=== PATIENT | male | born 1965 | race Caucasian/White ===

== ENCOUNTER → 2016-07-01 | Outpatient (CLI) | payer BC ==
--- NOTE | 2016-07-01 18:09 | PN ---
DATE OF SERVICE: 07/01/2016 This patient is a 51-year-old gentleman who has been followed in the sleep center for treatment of obstructive sleep apnea/hypopnea syndrome. Patient continues treatment with CPAP every night for the whole night but has difficulties related to the pressure because he significantly lost weight since his previous visit, from 280 pounds to 235 pounds, and from previous titration from 286 pounds. Subsequently he lost around 50 pounds. He always sleeps with the machine, so we do not know exactly whether or not now he snores, after he lost weight. I checked his CPAP unit. It demonstrated that the patient is using it every night for the whole night; 30 out of 30 nights, for more than 4 hours. CPAP pressure is 12 cm of water. Machine does not give us a reading of AHI. [place] Sleepiness Scale is 5. MEDICATIONS: 1. Primidone. 2. Synthroid. 3. B12 supplement. 4. Other vitamins. PHYSICAL EXAMINATION: GENERAL: Pleasant gentleman in no distress. VITAL SIGNS: BP 142/83, HR 58, RR 16. Height 5 feet 11 inches. Weight 235. BMI 32.7. Neck 16 inches in circumference. Temperature 97.8. Oxygen saturation at room air 100%. HEENT: PERRLA, EOMI. Evaluation of oropharynx showed tongue protrudes midline; low position of soft palate. NECK: Supple. No JVD. Thyroid is not palpable. LUNGS: Clear to percussion and to auscultation. Good air exchange. No wheezing or rhonchi. HEART: S1, S2 regular. No murmurs, gallops or rubs. ABDOMEN: Slightly obese. EXTREMITIES: No clubbing or cyanosis. NURSE CASE MANAGEMENT: Awake, alert, and oriented x3. Cranial nerves 2 to 7 intact. There is no fasciculation or atrophy noted. No focal deficits observed. IMPRESSION: 1. Obstructive sleep apnea-hypopnea syndrome. Patient has difficulties with usage of his CPAP unit. Now he has lost about 50 pounds. 2. Hypertension. 3. Mild obesity; body mass index of 32.7. 4. Hypothyroidism. 5. Hyperlipidemia. 6. History of essential tremor. PLAN: 1. We will repeat CPAP titration for re-evaluation of effective CPAP pressure at the present time. 2. Continue losing weight. 3. Sleep hygiene with regular time in bed for at least 8 hours. 4. Precautions related to driving; no driving if feeling any sleepiness. Patient is aware of civil and criminal liability for unsafe driving. 5. Prescription for all necessary CPAP supplies. Thank you very much for allowing me to participate in the management of your patient. Sincerely, Avinash Fuller MD, PhD, FAASM. Diplomat of [place] Board of Sleep Medicine, Sleep Medicine Board by [place] Board of Medical Specialities, [place] Board of Internal Medicine
== END | disposition home or self-care (01) ==
LOC: SLEEP 14:49
PROVIDERS: ATTEND Internal Medicine
DX: G47.33 Obstructive sleep apnea (adult) (pediatric) (principal); I10 Essential (primary) hypertension; E66.9 Obesity, unspecified; Z68.32 Body mass index [BMI] 32.0-32.9, adult; E03.9 Hypothyroidism, unspecified; E78.5 Hyperlipidemia, unspecified; G25.0 Essential tremor; Z79.899 Other long term (current) drug therapy

== ENCOUNTER → 2016-12-29 | Outpatient (CLI) | payer BC ==
--- NOTE | 2016-12-29 18:17 | PN ---
PROGRESS NOTE DATE OF SERVICE: 12/29/2016 51-year-old gentleman who has been followed in the Sleep Center for treatment of obstructive sleep apnea-hypopnea syndrome. Recently patient received his new CPAP unit, using it every night for the whole night and sometimes feel discomfort in his right ear area, possibly related to the ear. I checked his CPAP unit. CPAP pressure is 8 cm of water. Usage is 100% more than 4 hours. Average usage is 7 hours 18 minutes. Apnea-hypopnea index is only 0.2 with the machine. I discussed results of the titration with the patient and reviewed the results of the titration. Again at the pressure of 7 Apnea-hypopnea index was 0.8 in the pressure 8, it was 1.6 but with a pressure of 6 Apnea-hypopnea index increased to 12.6. MEDICATIONS: 1. Synthroid. 2. Primidone. PHYSICAL EXAMINATION: During physical exam patient in no distress. BP 126/77, HR 48, RR 16, weight 240.2, temp 98.0, oxygen saturation on room air 100%. [place] Sleepiness Scale is 1. Oropharynx low position of soft palate. Neck Supple, no JVD. Thyroid is not palpable. LUNGS Clear to percussion and to auscultation. Good air exchange. No wheezing or rhonchi. HEART S1, S2 regular. No murmurs, gallops, or rubs. ABDOMEN Soft and nontender. Bowel sounds are present. No organomegaly appreciated. EXTREMITIES No clubbing or cyanosis. SUPERVISOR PUTTY AND CALUKING Awake, alert, and oriented X3. Cranial nerves 2 to 7 intact. There is no fasciculation or atrophy. noted. No focal deficits observed. IMPRESSION: 1. Obstructive sleep apnea-hypopnea syndrome on full control with CPAP at 8 cm of water. Patient demonstrated 100% compliance with treatment benefitting from treatment. 2. History of hypertension in the past, presently not on any medications for hypertension. Blood pressure normal today in the office. 3. Hypothyroidism. 4. Hyperlipidemia. 5. History of essential tremor. PLAN: 1. I will decrease pressure down to 7 cm of water. 2. Patient will continue to use equipment every night for the whole night. 3. Continue losing weight. 4. Sleep hygiene in bed for at least 8 hours. 5. 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 No driving if feeling sleepiness. No sleepiness at the present time. He is aware about civil and criminal liability driving. Thank you very much for allowing me to participate in the management of your patient. Sincerely, Avinash Fuller MD, PhD, FAASM Diplomat of [place] Board of Medical Specialties [place] Board of Internal Medicine Service Engine Repairer of [facility] [place] MMODL / GARRYN: [id number] /
== END ==
LOC: SLEEP 16:20
PROVIDERS: ATTEND Internal Medicine
DX: G47.33 Obstructive sleep apnea (adult) (pediatric) (principal); E03.9 Hypothyroidism, unspecified; E78.5 Hyperlipidemia, unspecified; I10 Essential (primary) hypertension; Z79.899 Other long term (current) drug therapy

== ENCOUNTER → 2017-02-17 | Outpatient (CLI) | payer BC ==
--- NOTE | 2017-02-17 17:38 | PN ---
PROGRESS NOTE DATE OF SERVICE: 02/17/2017 51-year-old gentleman who has been followed in Sleep Center for treatment of obstructive sleep apnea-hypopnea syndrome. During the last visit about 2 months ago, I changed pressure down from 8 cm of water to 7 cm of water because patient had some feeling of pressure in his ears and in his eyes. The concern was that maybe after decreasing pressure, it will be not enough for correction of his respiratory abnormalities. The patient continued to use his CPAP every night. No problem with breathing. No problem with the mask. No snoring with the machine. [place] Sleepiness Scale today is 1. I checked his CPAP unit. Usage is 100% of the time more than 4 hours. Average usage is 7.5 hours. Pressure is 7 cm of water. Leak is only 4 L/minute. Apnea-hypopnea index for the last month only 0.3, which is totally normal. MEDICATIONS: Synthroid, Primidone. PHYSICAL EXAM: GENERAL Patient in no distress. VITAL SIGNS BP 138/84, HR 61, R RR 16, weight 241, temp 97.7, oxygen saturation room air 99%. HEENT PERRLA, EOMI, evaluation of oropharynx showed low position of soft palate. NECK Supple, no JVD. Thyroid is not palpable. LUNGS Clear to percussion and to auscultation. Good air exchange. No wheezing or rhonchi. HEART S1, S2 regular. No murmurs, gallops, or rubs. ABDOMEN Soft and nontender. Bowel sounds are present. No organomegaly appreciated. EXTREMITIES No clubbing or cyanosis. PLATE STACKER HAND Awake, alert, and oriented X3. Cranial nerves 2 to 7 intact. There is no fasciculation or atrophy. noted. No focal deficits observed. IMPRESSION: 1. Obstructive sleep apnea-hypopnea syndrome on control with CPAP at 7 cm of water. Patient demonstrated 100% compliance with treatment benefitting from treatment. No side effects of CPAP therapy. 2. History of hypertension in the past. Very minimally increased today in the office. 3. Hypothyroidism. 4. History of essential tremor. 5. Hyperlipidemia. PLAN: 1. Continue treatment with CPAP every night for the whole night with pressure 7 cm of water. 2. Sleep hygiene with regular time in bed for at least 8 hours. 3. No driving if feeling any sleepiness. Precautions related to driving. 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 He is aware about civil and criminal liability for unsafe driving and promises to follow recommendations. 4. Prescription for all necessary CPAP supplies. 5. Followup visit in 6 months. Thank you very much for allowing me to participate in management of your patient. Sincerely, Avinash Fuller MD, PhD, FAASM Diplomat of [place] Board of Medical Specialties [place] Board of Internal Medicine Health And Social Care Teacher of [facility] [place] MMODL / IJN: [id number] /
== END | disposition home or self-care (01) ==
LOC: SLEEP 15:05
PROVIDERS: ATTEND Internal Medicine
DX: G47.33 Obstructive sleep apnea (adult) (pediatric) (principal); E03.9 Hypothyroidism, unspecified; E78.5 Hyperlipidemia, unspecified; I10 Essential (primary) hypertension; Z86.69 Personal history of other diseases of the nervous system and sense organs; Z79.899 Other long term (current) drug therapy

== ENCOUNTER → 2017-09-29 | Outpatient (CLI) | payer BC ==
--- NOTE | 2017-09-29 11:42 | SFUN ---
SLEEP CENTER FOLLOW UP NOTE DATE OF SERVICE: 09/29/2017 A 52-year-old gentleman who has been followed in Sleep Center for treatment of obstructive sleep apnea-hypopnea syndrome. 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 Patient successfully continued to use his CPAP equipment every night without any problems. No snoring with CPAP. No sleepiness during the day. [place] Sleepiness Scale is 0. Patient is about the same weight as 6 months ago. I checked his CPAP unit. CPAP pressure is 7 cm of water. Usage is 100% of the time more than 4 hours, average 7.1 hours per night. Leak is only 2 L/minute which is very minimal. Apnea-hypopnea index is 0.3 for the last 6 months, which is again perfect. MEDICATIONS: Synthroid. PHYSICAL EXAM: Patient in no distress. BP 136/85, HR 74, RR 18, height 5, 11, weight 242.0, BMI 33.7, oxygen saturation at room air 94%/ OROPHARYNX: Evaluation of oropharynx with low position of soft palate. ABDOMEN: Slightly obese. Neck Supple, no JVD. Thyroid is not palpable. LUNGS Clear to percussion and to auscultation. Good air exchange. No wheezing or rhonchi. HEART S1, S2 regular. No murmurs, gallops, or rubs. EXTREMITIES No clubbing or cyanosis. OXYGEN EQUIPMENT TECHNICIAN Awake, alert, and oriented X3. Cranial nerves 2 to 7 intact. There is no fasciculation or atrophy. noted. No focal deficits observed. IMPRESSION: 1. Obstructive sleep apnea-hypopnea syndrome, on full control with CPAP at the pressure of 7 cm of water. 2. Patient demonstrated 100% compliance with treatment with a normal amount of hours of usage per night, benefitting from treatment. No symptoms of excessive daytime sleepiness. 3. Obesity, body mass index of 33.7. 4. History of hypertension in the past. Patient not on any medications for over a year. Borderline blood pressure in the office. 5. Hypothyroidism. 6. Hyperlipidemia. 7. History of essential tremor. No significant tremor today during physical exam. PLAN: 1. Patient will continue to use CPAP equipment every night for the whole night. 2. Sleep hygiene with regular time in bed for at least 7-1/2 hours. 3. 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 He is aware about precautions related to driving. No driving if feeling any sleepiness. He is aware about civil and criminal liability for unsafe driving. Promised to follow all recommendations. 4. Losing weight. Thank you very much for allowing me to participate in the management of your patient. Sincerely, Avinash Fuller MD, PhD, FAASM Diplomat of [place] Board of Medical Specialties [place] Board of Internal Medicine Spool Tender of [facility] [place] MMODL / BUTCH: [id number] /
== END | disposition home or self-care (01) ==
LOC: SLEEP 10:12
PROVIDERS: ATTEND Internal Medicine
DX: G47.33 Obstructive sleep apnea (adult) (pediatric) (principal); I10 Essential (primary) hypertension; E03.9 Hypothyroidism, unspecified; E78.5 Hyperlipidemia, unspecified; E66.9 Obesity, unspecified; Z68.33 Body mass index [BMI] 33.0-33.9, adult; Z86.69 Personal history of other diseases of the nervous system and sense organs; Z99.89 Dependence on other enabling machines and devices; Z79.899 Other long term (current) drug therapy

== ENCOUNTER → 2018-09-28 | Outpatient (CLI) | payer BC ==
--- NOTE | 2018-09-28 18:19 | PN ---
PROGRESS NOTE DATE OF SERVICE: 09/28/2018 This patient is a 53-year-old gentleman who has been followed in Sleep Center for treatment of obstructive sleep apnea-hypopnea syndrome. Patient successfully continues to use equipment every night without problems related to mask fitting, pressure or humidification. The patient denied any daytime sleepiness. [place] Sleepiness Scale is 1. I checked his CPAP unit. CPAP pressure is 7 cm of water. Usage for the last month is 100% of nights for more than 4 hours, with average usage 7.2 hours per night. Leak is 0 L/minute. Apnea-hypopnea index only 0.3, which is absolutely perfect. Reading for the year showed usage of the machine 353/365 nights for more than 4 hours with average usage 7.3 hours and leak 1 L/minute. Apnea-hypopnea index still 0.3, which is perfect. MEDICATIONS: Synthroid. PHYSICAL EXAMINATION: GENERAL: A pleasant patient in no distress. VITAL SIGNS: BP 158/107, HR 70, RR 16, height 5 feet 11 inches, weight 249 pounds, body mass index 34.7, temperature 98.5, oxygen saturation at room air 100%. HEENT: PERRLA, EOMI. Evaluation of oropharynx showed tongue protrudes midline. Low position of soft palate. NECK: Supple. No JVD. Thyroid is not palpable. LUNGS: Clear to percussion and to auscultation. Good air exchange. No wheezing or rhonchi. HEART: S1, S2 regular. No murmurs, gallops or rubs. ABDOMEN: Soft and nontender. Bowel sounds are present. No organomegaly. EXTREMITIES: No clubbing or cyanosis. HOTEL RECEPTIONIST: Awake, alert, and oriented X3. Cranial nerves 2 to 7 intact. There is no fasciculation or atrophy. noted. No focal deficits observed. IMPRESSION: 1. Obstructive sleep apnea-hypopnea syndrome. Patient demonstrated practically 100% compliance with treatment, benefitting from treatment. Normal respiration on CPAP. No symptoms of excessive daytime sleepiness. 2. Mild obesity; body mass index 34.7. The patient's weight increased by 7 pounds compared to his previous visit. 3. History of hypertension in the past, treated with medications in the past. Today's blood pressure is increased. 4. Hypothyroidism. 5. Hyperlipidemia. 6. History of essential tremor. No significant tremor at present. PLAN: 1. Patient will continue to use CPAP equipment every night for the whole night. 2. Prescription for all necessary CPAP supplies. 3. Monitoring of blood pressure, low-sodium diet and followup with primary care physician for monitoring of blood pressure. 4. Losing weight. 5. 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 Precautions related to driving. No driving if feeling any sleepiness. Patient is aware of civil and criminal liability for unsafe driving. Thank you very much for allowing me to participate in the management of your patient. Sincerely, Avinash Fuller MD, PhD, FAASM Diplomat of [place] Board of Medical Specialties [place] Board of Internal Medicine Filters Assembler of [facility] [place] MMODL / IJN: [id number] /
== END ==
LOC: SLEEP 15:02
PROVIDERS: ATTEND Internal Medicine
DX: G47.33 Obstructive sleep apnea (adult) (pediatric) (principal); E66.9 Obesity, unspecified; I10 Essential (primary) hypertension; E03.9 Hypothyroidism, unspecified; E78.5 Hyperlipidemia, unspecified; Z86.69 Personal history of other diseases of the nervous system and sense organs; Z68.34 Body mass index [BMI] 34.0-34.9, adult; Z99.89 Dependence on other enabling machines and devices; Z79.899 Other long term (current) drug therapy

== ENCOUNTER 2022-11-19 08:17 | Day surgery (SDC) | payer BC ==
[2022-11-17 16:31] VITALS: BMI 35.9
[2022-11-19] MEDS ORDERED: LIDOCAINE 1% (10MG/ML) FOR IV START INTRADERMA PRN (08:38)
[2022-11-19] MEDS ORDERED: ONDANSETRON 4 MG/2 ML VIAL IVP PRN (08:38)
[2022-11-19] MEDS: LACTATED RINGERS 1,000 ML IV SCH ×2 (08:40→09:04)
[2022-11-19 08:52] VITALS: TEMP 97.3
[2022-11-19] MEDS ORDERED: PROPOFOL 10 MG/ML 20 ML VIAL IV ONE (09:05)
--- NOTE | 2022-11-19 09:23 | P.PCN ---
Date of Procedure: 11/19/22 Procedure(s) Performed: BRIEF HISTORY: Patient is a 57-year-old pleasant white male scheduled for an elective colonoscopy as a part of screening for colon cancer. PROCEDURE PERFORMED: Colonoscopy with biopsy. PREOPERATIVE DIAGNOSIS: Screening for colon cancer. IV sedation per Anesthesia. PROCEDURE: After informed consent was obtained, the patient, was brought into the endoscopy unit. IV sedation was administered by Anesthesia under continuous monitoring. Digital rectal examination was normal. Initially the Olympus CF-160 flexible video colonoscope was then inserted in the rectum, gradually advanced into the cecum without any difficulty. Careful examination was performed as the scope was gradually being withdrawn. Ileocecal valve and the appendiceal orifice were visualized and appeared normal. Prep was excellent. Mucosa of the cecum, ascending colon, transverse colon, appeared normal. In the descending colon there was a 4 mm polyp removed by cold biopsy. In the sigmoid there was a 5 mm polyp removed by cold biopsy. Rest of the sigmoid sigmoid descending colon, sigmoid colon, and rectum appeared normal. Retroflexion was performed in the rectum and no lesions were seen. The patient tolerated the procedure well. IMPRESSION: 4 mm descending colon polyp status post cold biopsy 5 mm; polyp status post removal by cold biopsy Rest of the colon appeared normal RECOMMENDATIONS: Findings of this examination were discussed with the patient as well as his family. He was advised to follow with the biopsy. If the biopsy with adenoma he can have a repeat colonoscopy in.
[2022-11-19 09:30] VITALS: PULSE 60
[2022-11-19 09:50] VITALS: BP 158/85; RESP 18
== END 2022-11-19 10:03 | disposition home or self-care (01) ==
LOC: ORWHC2ENDO 08:17
PROVIDERS: ATTEND Internal Medicine Gastroenterology
DX: Z12.11 Encounter for screening for malignant neoplasm of colon (principal); D12.4 Benign neoplasm of descending colon; I10 Essential (primary) hypertension; G47.33 Obstructive sleep apnea (adult) (pediatric); E07.9 Disorder of thyroid, unspecified; F17.200 Nicotine dependence, unspecified, uncomplicated; Z88.6 Allergy status to analgesic agent; Z79.890 Hormone replacement therapy; Z79.899 Other long term (current) drug therapy
CPT/HCPCS: 88305; 45380; J2704

== ENCOUNTER → 2023-12-26 | Outpatient (CLI) | payer BC ==
--- NOTE | 2023-12-26 12:47 | CA ---
Exercise Stress Test Report Name: Srini Harris Exam Date: 12/26/2023 09:04 Exam Location: [place] Stress Ht (in): 72 Wt (lb): 278 BSA: 2.45 Ordering Phys: Beni Grimm DO Referring Phys: beni grimm Technologist: Zac Medina Age: 58 Gender: M : 1965 Procedure CPT: Indications: I10 HTN R07.89 CHEST PAIN ICD-10 Codes: Patient History: CHEST PAIN, HTN, FAMILY HX OF HEART DISEASE, NUMBNESS IN FACE/NECK Medications: LEVOTHYROXINE, LOSARTAN, AMLODIPINE, FAMOTIDINE Meds past 24 hrs: Pretest Chest Pain: STRESS TEST [employer] Protocol Exercise Duration (min:sec): 10:[address] Depressions (mm): Angina Score: Norton Score: Resting HR (bpm): 72 Peak HR (bpm): 141 Resting BP (mmHg): 145 / 91 Peak BP (mmHg): 202 / 82 MPHR: 161 Target HR: 137 % MPHR: 88 METS: 12.1 Total Dose: Peak Dose: Atropine: Double Product: 11083 BP Response: Stress Termination: MAX EXERTION/TARGET HR Stress Symptoms: NO SYMPTOMS Stress Summary: The patient's target heart rate was achieved ECG ANALYSIS Resting ECG: Sinus rhythm. Normal conduction. No arrhythmias. Normal repolarization. Stress ECG: No ECG evidence of ischemia with exercise. CONCLUSIONS Exercise capacity very good at >[address] segment response to stress. Normal electrocardiograph stress test with no evidence of stress induced ischemia Dr. Ivan Harris MD (Electronically Signed) Final Date: 26 December 2023 12:46
== END | disposition home or self-care (01) ==
LOC: RADNMMAIN 08:18
PROVIDERS: ATTEND Family Medicine
DX: I10 Essential (primary) hypertension (principal); R07.89 Other chest pain; Z82.49 Family history of ischemic heart disease and other diseases of the circulatory system
CPT/HCPCS: 93017